=== PATIENT | female | born 1990 | race Hispanic/Latino ===

== ENCOUNTER 2020-09-21 10:00 | Inpatient (IN) | payer OTHER ==
[~2020-09-21] VITALS: Ht 157.5 cm; Wt 92.1 kg
[~2020-09-21 10:00] MED LIST: ACET1TAB12 PO; PREN1TAB26 PO
[2020-09-27] MEDS ORDERED: CEFAZOLIN SODIUM 1 GM VIAL IVP PRN (05:30)
[2020-09-27 06:38] LABS: HEMATOCRIT 36.8 % (36-48); MEAN CORPUSCULAR HEMOGLOBIN 25.7 pg (27.0-33.0); MEAN CORPUSCULAR HGB CONC 32.1 g/dL (32.0-36.0); MEAN CORPUSCULAR VOLUME 80.2 fL (79-99); RED BLOOD CELL COUNT(AUTO) 4.59 MIL/uL (4.00-5.50); RED CELL DISTRIBUTION WIDTH 14.1 % (11.0-15.5); WHITE BLOOD COUNT (AUTO) 10.2 K/uL (4.8-10.8)
[2020-09-27 06:50] VITALS: BP 125/77
[2020-09-27] MEDS ORDERED: PREN-196 PO (06:53)
[2020-09-27] MEDS: LACTATED RINGERS 1000ML 1,000 ML IV SCH ×2 (07:01→17:10)
[2020-09-27 07:16] LABS: APPEARANCE,URINE CLEAR (CLEAR); BILIRUBIN,URINE NEGATIVE (NEGATIVE); COLOR,URINE YELLOW (YELLOW); GLUCOSE, URINE (UA) NEGATIVE (NEGATIVE); KETONES,URINE NEGATIVE (NEGATIVE); LEUKOCYTE ESTERASE ,URINE SMALL (NEGATIVE); NITRATE,URINE NEGATIVE (NEGATIVE); OCCULT BLOOD,URINE NEGATIVE (NEGATIVE); PROTEIN,URINE NEGATIVE (NEGATIVE); UROBILINOGEN,URINE 0.2 mg/dL (0.2-1.0)
[2020-09-27] MEDS ORDERED: DEXAMETHASONE SOD PHOSPHATE 10MG/ML 1ML VIAL ONE (07:21)
[2020-09-27] MEDS ORDERED: OXYTOCIN 10 UNIT/1ML 10ML VIAL ONE (07:21)
[2020-09-27] MEDS ORDERED: MORPHINE PF 100MG/10ML AMP IV ONE (07:22)
[2020-09-27] MEDS ORDERED: ONDANSETRON 4MG INJ ONE (07:22)
[2020-09-27] MEDS ORDERED: EPHEDRINE SULFATE 50 MG/ML AMPULE ONE (07:22)
[2020-09-27] MEDS ORDERED: CEFAZOLIN SODIUM 1 GM VIAL IVP ONE (07:29)
[2020-09-27 07:51] LABS: BACTERIA,URINE Few /HPF (None Seen); SQUAMOUS EPITHELIAL CELL,UR Few /HPF (0-2); WBC,URINE 0-1 /HPF (0-1)
[2020-09-27] MEDS ORDERED: OXYTOCIN-LR 20 UNITS/1000 ML 1,000 ML IV ONE (08:17)
[2020-09-27] MEDS ORDERED: 0.9%NACL 10ML VIAL IVP PRN (08:30)
[2020-09-27] MEDS ORDERED: DEXTROSE 5 %-0.45 % NACL 1,000 ML IV PRN (08:30)
[2020-09-27] MEDS ORDERED: OXYTOCIN-LR 20 UNITS/1000 ML 1,000 ML IV PRN (08:30)
[2020-09-27] MEDS ORDERED: MEPERIDINE-PF 75 MG/ML SYG IM PRN (08:30)
[2020-09-27] MEDS ORDERED: PROMETHAZINE HCL 25 MG/ML 1ML AMPULE IM PRN (08:30)
[2020-09-27 09:50] VITALS: BP 117/73
[2020-09-27 11:55] VITALS: BP 128/66
[2020-09-27] MEDS ORDERED: DiphenhydrAMINE HCL 50 MG/ML VIAL IVP PRN (12:15)
[2020-09-27] MEDS ORDERED: EPHEDRINE SULFATE 50 MG/ML AMPULE IVP PRN (12:15)
[2020-09-27] MEDS ORDERED: MORPHINE 2 MG SYG IVP PRN (12:15)
[2020-09-27] MEDS ORDERED: NALOXONE HCL 0.4 MG/1 ML ML IVP PRN (12:15)
[2020-09-27] MEDS ORDERED: ONDANSETRON 4MG INJ IVP PRN (12:15)
[2020-09-27 16:45] VITALS: BP 117/65
[2020-09-27 19:50] VITALS: BP 112/66
[2020-09-27] MEDS ORDERED: LANOLIN 30GM OINTMENT TP PRN (22:00)
[2020-09-27] MEDS ORDERED: HYDROCODONE/ACETAMINOPHEN 5/325 MG TAB PO PRN (22:00)
[2020-09-27] MEDS ORDERED: ACETAMINOPHEN WITH CODEINE 1 TAB TAB PO PRN (22:00)
[2020-09-27] MEDS ORDERED: BISACODYL 10 MG SUPP.RECT RC PRN (22:00)
[2020-09-27] MEDS ORDERED: ACETAMINOPHEN 500 MG TABLET PO PRN (22:00)
[2020-09-27 22:50] VITALS: BP 116/76
[2020-09-28] MEDS: LACTATED RINGERS 1000ML 1,000 ML IV SCH (01:00)
[2020-09-28 03:32] VITALS: BP 113/61
[2020-09-28 06:12] LABS: HEPATITIS Bs ANTIGEN SCREEN P Negative (Negative)
[2020-09-28 06:51] LABS: HEMATOCRIT 30.3 % (36-48); MEAN CORPUSCULAR HEMOGLOBIN 26.5 pg (27.0-33.0); MEAN CORPUSCULAR HGB CONC 32.3 g/dL (32.0-36.0); MEAN CORPUSCULAR VOLUME 81.9 fL (79-99); RED BLOOD CELL COUNT(AUTO) 3.7 MIL/uL (4.00-5.50); RED CELL DISTRIBUTION WIDTH 14.1 % (11.0-15.5); WHITE BLOOD COUNT (AUTO) 12.1 K/uL (4.8-10.8)
[2020-09-28 07:15] VITALS: BP 113/80
[2020-09-28] MEDS: DOCUSATE SODIUM 100 MG CAP PO SCH ×2 (08:11→20:38)
[2020-09-28] MEDS: SIMETHICONE 80 MG TAB.CHEW PO PRN ×2 (08:11→20:38)
[2020-09-28] MEDS: IBUPROFEN 800 MG TAB PO SCH ×2 (08:12→17:10)
[2020-09-28 11:56] VITALS: BP 117/73
[2020-09-28 16:54] VITALS: BP 119/70
[2020-09-28 19:46] VITALS: BP 103/71
[2020-09-28 23:38] VITALS: BP 128/66
[2020-09-29] MEDS: IBUPROFEN 800 MG TAB PO SCH ×2 (00:12→08:16)
[2020-09-29 03:38] VITALS: BP 108/58
[2020-09-29 07:21] VITALS: BP 136/78
[2020-09-29] MEDS: DOCUSATE SODIUM 100 MG CAP PO SCH (08:14)
[2020-09-29] MEDS: SIMETHICONE 80 MG TAB.CHEW PO PRN (08:14)
[2020-09-29 11:35] VITALS: BP 129/82
== END 2020-09-29 11:55 | disposition home or self-care (01) | DRG 785 ==
LOC: LDH 09-27 05:29 → WSH 09-27 09:50
PROVIDERS: ADMIT Specialist; ATTEND Specialist
PROC: 0UB70ZZ Excision of Bilateral Fallopian Tubes, Open Approach (ICD-10-PCS; 2020-09-27)
PROC: 10D00Z1 Extraction of Products of Conception, Low, Open Approach (ICD-10-PCS; principal; 2020-09-27 07:30)
DX: O34.211 Maternal care for low transverse scar from previous cesarean delivery (principal); Z3A.39 39 weeks gestation of pregnancy; Z37.0 Single live birth; Z20.822 Contact with and (suspected) exposure to COVID-19; Z30.2 Encounter for sterilization; O69.81X0 Labor and delivery complicated by cord around neck, without compression, not applicable or unspecified
CPT/HCPCS: 36415; 59510; 81001; 85027; 86592; 86850; 86900; 86901; 87340; A4344; G0378; J0690; J1100; J2274; J2405; J2590; J3490; J7120; U0003